=== PATIENT | female | born 1950 | race Caucasian/White ===

== ENCOUNTER 2020-12-14 08:37 | Outpatient (RCR) | payer MEDICARE, SELFPAY ==
[2016-11-03 17:49] VITALS: BMI 29.2
[2020-12-14] MEDS: COVID-19 VACC, MRNA(PFIZER)/PF 30 MCG/0.3 ML SYRINGE IM (14:33)
[2021-01-04] MEDS: COVID-19 VACC, MRNA(PFIZER)/PF 30 MCG/0.3 ML SYRINGE IM (14:17)
== END 2021-03-13 23:59 ==
LOC: IMMUN 08:37
PROVIDERS: PCP Family Medicine; Referring Provider Family Medicine; Visit Provider Family Medicine
DX: Z23 Encounter for immunization (principal)
CPT/HCPCS: 0001A; 0002A; 91300

== ENCOUNTER 2021-08-06 22:12 | Emergency (ER) | payer MEDICARE, SELFPAY ==
[2021-08-06 22:13] VITALS: BP 182/94; PULSE 89; RESP 16; TEMP 36; O2SAT 95; BMI 26.6
--- NOTE | 2021-08-06 23:13 | RAD_ITS ---
STUDY: X-RAY - ABDOMEN/PELVIS REASON FOR EXAM: Female, 71 years old. constipation TECHNIQUE: KUB. COMPARISON: None. FINDINGS: Lung bases are clear. There is a non-obstructive bowel gas pattern. There is no organomegaly. No abnormal calcifications. Mild degenerative changes of the lumbar spine. Soft tissues and bony structures are otherwise unremarkable. RAD/Abdomen Single View IMPRESSION: No acute findings. Electronically Signed: Priti Le MD at 23:38 EDT Tel , Service support ,
--- NOTE | 2021-08-06 23:17 | EDS_ITS ---
HPI History of Present Illness Chief Complaint: Constipation Informant: patient Narrative Narrative: 71-year-old female presented to the emergency department with a chief complaint of constipation. Patient is postop day 3 from a hysterectomy performed at [facility]. She states that since the hysterectomy she has been taking stool softeners. She states that she feels pressure in the rectal area but cannot seem to pass any formed stool. She states that she was having flatus yesterday but not today. No fevers. She states that she is leaking diarrhea. [facility] Medical History (Updated 08/07/21 @ 00:[address] Qasim Morin DO) GERD (gastroesophageal reflux disease) Home Medications PE-DM-ASA/[id number] [[place] Day-Night Tab Eff] 1 ea PO Q6H PRN PRN 11/03/16 [History Last Taken Unknown] amoxicillin 500 mg PO TID #10 tab 11/03/16 [Rx Last Taken Unknown] cholecalciferol (vitamin D3) [Vitamin D3] 2,000 unit PO DAILY 11/03/16 [History Last Taken Unknown] omeprazole 10 mg PO DAILY 11/03/16 [History Last Taken Unknown] sodium chloride [[place] Nasal [place]] 1 spray NASAL PRN PRN 11/03/16 [History Last Taken Unknown] magnesium citrate 300 ml PO X1 PRN #2 bottle 08/07/21 [Rx Last Taken Unknown] Allergy/AdvReac Type Severity Reaction Status Date / Time No Known Allergies Allergy Verified 08/06/21 22:14 Surgical History (Updated 08/06/21 @ 23:[address] Qasim Morin DO) Status post hysterectomy Social History (Updated 08/06/21 @ 23:[address] Qasim Morin DO) Smoking Status: Never smoker substance use type: does not use ROS ROS ED Constitutional Constitutional ED: Denies chills or weight loss Eyes Eyes: Denies change in vision or diplopia ENT ENT ED: Denies ear pain, rhinorrhea or sore throat Cardiovascular Cardiovascular: Denies chest pain, orthopnea, palpitations or racing heartbeat Respiratory/Chest Respiratory/Chest: Denies cough, dyspnea or orthopnea Gastrointestinal Gastrointestinal: Reports constipation; Denies abdominal pain, diarrhea, nausea or vomiting Genitourinary Genitourinary ED: Denies dysuria, hematuria or urinary frequency Musculoskeletal Musculoskeletal: Denies arthralgias or myalgias Integumentary Denies abscess or rash Neurologic Neurologic: Denies headache(s) or weakness Psychiatric Psychiatric: Denies anxiety, depression, suicidal ideation or suicidal thoughts Endocrine Endocrinology: Denies polydipsia, polyphagia or polyuria Allergic/Immunologic Allergic/Immunologic ED: Denies mouth swelling, tongue swelling or urticaria EXAM Physical Exam Const Vital Signs: 08/06/21 22:13 Temperature 96.8 F L Temperature Source Temporal Pulse Rate 89 Respiratory Rate 16 Blood Pressure 182/94 H Blood Pressure Mean 123 Pulse Ox 95 Oxygen Delivery Method Room Air Positive well nourished and well developed General Appearance ED: well developed HEENT Reports normocephalic, head/scalp atraumatic, TM's clear and moist mucous membranes Negative for trauma Tympanic Membrane ED: Yes TM's clear Eyes PERRL and EOMs intact bilaterally Neck no lymphadenopathy, supple and no JVD Resp normal respiratory effort and clear to auscultation bilaterally Cardio regular rate, regular rhythm and no murmurs GI normal to inspection, nondistended, normoactive bowel sounds and non-tender Palpation: soft Back/Spine no CVA tenderness and normal ROM Extremity normal to inspection General Extremety ED: Negative for edema General Extremity: Negative for edema Neuro oriented x3 and CN's II-XII intact bilaterally Sensorium / Orientation: alert Motor Exam: strength 5/5 throughout Psych mental status grossly normal Mood & Affect: Negative for depressed or tearful Skin no rashes or lesions noted and no wounds MDM MDM MDM Narrative Medical decision making narrative: My interpretation of the abdominal x-ray is large amount of stool in the rectum and sigmoid colon. Patient received an enema but had difficulty holding it. The stool in the rectal vault is soft. Patient will continue enemas at home as well as magnesium citrate. Radiography Diagnostic Testing: Clinical Impression(s) from Imaging Studies KUB X-Ray 08/06/21 23:13 IMPRESSION: No acute findings. Electronically Signed: Priti Le MD at 23:38 EDT Tel , Service support , Discharge Plan Triage Chief Complaint: Constipation ED Provider: Qasim Morin Dx/Rx/DC Orders Clinical Impression: Constipation Instructions: ED Constipation (Adult) Prescriptions: New magnesium citrate Solution 300 ml PO X1 PRN (Reason: constipation) Qty: 2 RF: 0 No Action omeprazole 10 MG capsule 10 mg PO DAILY RF: 0 sodium chloride [[place] Nasal] 1 SPRAY aerosol,spray 1 spray NASAL PRN PRN (Reason: Sinus Congestion) RF: 0 cholecalciferol (vitamin D3) [Vitamin D3] 2,000 UNIT capsule 2,000 unit PO DAILY RF: 0 PE-DM-ASA/erjtyq-LZ-CM-ASA [[place] Plus Day-Night] 1 EACH tablet,effervescent sequential 1 ea PO Q6H PRN PRN (Reason: Cold Symptons) RF: 0 amoxicillin 500 MG tablet 500 mg PO TID Qty: 10 RF: 0 Primary Care Provider: Archana Barraza Referrals: Archana Barraza MD [Primary Care Provider] - As Needed Activity Restrictions/Additional Instructions: As discussed you may wish to continue enemas at home to help soften the stool to make it easier to pass Disposition Disposition: Home, Self Care
[2021-08-07] MEDS: Magnesium Citrate 300 ML PO (01:20)
== END 2021-08-07 01:21 | disposition home or self-care (01) ==
PROVIDERS: Emergency Provider Emergency Medicine; PCP Family Medicine
DX: K59.00 Constipation, unspecified (principal)
CPT/HCPCS: 74018; 99285

== ENCOUNTER 2022-03-31 16:49 | Emergency (ER) | payer MEDICARE, SELFPAY ==
[2022-03-31 16:50] VITALS: BP 176/81; PULSE 95; RESP 16; TEMP 36.3; O2SAT 100; BMI 26.6
--- NOTE | 2022-03-31 17:01 | EDS_ITS ---
HPI History of Present Illness Chief Complaint: Upper Extremity Injury Informant: patient Occured/Mechanism Mechanism/Context: Yes fall Onset/Context/Timing Onset: Today Context: Sudden Onset Current Severity: Mild Maximum Severity: Mild Narrative Narrative: Patient presents with right wrist pain after a fall. She was coming down some steps, missed the last step, twirled and fell backward onto the ground. She complains of pain to her right wrist and mild pain to her left elbow. She is r ight-hand dominant. She denies striking her head. She is not on anticoagulants. She took ibuprofen for pain prior to arrival. [facility] Medical History GERD (gastroesophageal reflux disease) Home Medications omeprazole 10 mg capsule,delayed release 10 mg PO DAILY 11/03/16 [History Last Taken Unknown] doxepin 25 mg capsule 1 cap PO QHS 03/31/22 [History Last Taken Unknown] Allergy/AdvReac Type Severity Reaction Status Date / Time No Known Allergies Allergy Verified 03/31/22 16:51 Surgical History Status post hysterectomy Social History Smoking Status: Never smoker substance use type: does not use ROS ROS ED Constitutional Constitutional ED: Denies chills or fever(s) Eyes Eyes: Denies change in vision or discharge from eye(s) ENT ENT ED: Denies discharge from eye(s), rhinorrhea or sore throat Cardiovascular Cardiovascular: Denies chest pain or palpitations Respiratory/Chest Respiratory/Chest: Denies cough or dyspnea Gastrointestinal Gastrointestinal: Denies abdominal pain, diarrhea, nausea or vomiting Genitourinary Genitourinary ED: Denies dysuria Musculoskeletal Musculoskeletal: Reports extremity pain; Denies back pain Integumentary Denies rash Psychiatric Psychiatric: Denies anxiety or depression Allergic/Immunologic Allergic/Immunologic ED: Denies lip swelling or urticaria EXAM Physical Exam Const Vital Signs: 03/31/22 16:50 Temperature 97.4 F L Temperature Source Temporal Pulse Rate 95 Respiratory Rate 16 Blood Pressure 176/81 H Blood Pressure Mean 112 Pulse Ox 100 Oxygen Delivery Method Room Air Positive well nourished and well developed General Appearance ED: well developed HEENT Reports normocephalic and head/scalp atraumatic Eyes PERRL and EOMs intact bilaterally Neck supple Chest Wall inspection of chest normal and palpation of chest normal Resp normal respiratory effort and clear to auscultation bilaterally Cardio regular rate and regular rhythm GI normal to inspection, nondistended, normoactive bowel sounds Palpation: soft Extremity Extremity Narrative: Small ecchymosis noted along the medial left elbow. No bony tenderness with full range of motion. Tenderness palpation over the radial surface of the right wrist. Mild edema. Strong hand grasp. No tenderness at the elbow or shoulder Neuro oriented x3 and no sensory deficits noted Sensorium / Orientation: alert Motor Exam: strength 5/5 throughout Psych mental status grossly normal Skin Skin Narrative: As above MDM MDM MDM Narrative Medical decision making narrative: Right wrist x-rays obtained to include navicular view. Radiography Diagnostic Testing: Radiology Impression Wrist X-Ray 03/31/22 17:27 IMPRESSION: Acute nondisplaced nonangulated oblique fracture the distal metaphysis of the radius with ulnar styloid fracture. Electronically Signed: Ramez Cheung MD at 17:44 EDT , Treatment and Re-Evaluation Narrative: Right wrist x-ray per my interpretation reveals a distal radius fracture. Radiology interpretation is reviewed. They do confirm an acute nondisplaced fracture through the distal radius and an ulnar styloid fracture. Test results are reviewed with the patient. She is placed in an AP Ortho-Glass splint by myself. Following splint application she can wiggle fingers and has good cap refill. She will follow-up with orthopedics. She declines anything for pain Discharge Plan Triage Chief Complaint: Upper Extremity Injury ED Provider: Eda Xavier Dx/Rx/DC Orders Clinical Impression: Fracture of wrist Instructions: ED Fracture, Wrist, General Prescriptions: No Action omeprazole 10 MG capsule 10 mg PO DAILY doxepin 25 mg capsule 1 cap PO QHS Label Comments: TAKE 1 CAPSULE BY MOUTH NIGHTLY Primary Care Provider: Archana Barraza Referrals: Archana Barraza MD [Primary Care Provider] - Rene Colorado MD [STAFF PHYSICIAN] - 5-7 Days Disposition Disposition: Home, Self Care
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
[2022-03-31 18:41] VITALS: RESP 16
== END 2022-03-31 18:41 | disposition home or self-care (01) ==
PROVIDERS: Emergency Provider Emergency Medicine; PCP Family Medicine; Visit Provider Emergency Medicine
DX: S62.101A Fracture of unspecified carpal bone, right wrist, initial encounter for closed fracture (principal); K21.9 Gastro-esophageal reflux disease without esophagitis; Z79.899 Other long term (current) drug therapy; W10.9XXA Fall (on) (from) unspecified stairs and steps, initial encounter
CPT/HCPCS: 73110; 99283

== ENCOUNTER 2023-04-14 10:21 | Emergency (ER) | payer MEDICARE, SELFPAY ==
[2023-04-14 10:23] VITALS: BP 119/107; PULSE 92; RESP 16; TEMP 36.6; O2SAT 93; BMI 29.0
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
[2023-04-14] MEDS: Acetaminophen 325 MG Tablet 650 MG PO (11:39)
== END 2023-04-14 11:47 | disposition home or self-care (01) ==
PROVIDERS: Emergency Provider Emergency Medicine; PCP Family Medicine; Visit Provider Emergency Medicine
DX: S50.12XA Contusion of left forearm, initial encounter (principal); S39.012A Strain of muscle, fascia and tendon of lower back, initial encounter; V49.88XA Car occupant (driver) (passenger) injured in other specified transport accidents, initial encounter
CPT/HCPCS: 71046; 72100; 99284

== ENCOUNTER 2023-06-02 09:30 | Outpatient (RCR) | payer MEDICARE, SELFPAY ==
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
--- NOTE | 2023-06-02 10:13 | HP.PTDCSUM ---
Discharge Summary D/C summary: It has been my pleasure to treat NATALEE AVILEZ referred by Dr. Archana Barraza MD, with the diagnosis of Acute midline LBP for a total of 7 visit(s). Discharge Date: 06/02/23 Please see the following information for a summary of their discharge status. Subjective Subjective: Much better than 3 weeks ago. I am moving better. Pain is 2/10 any significantly better and mostly present with exertion. Sleeping is OK. Dizzyness is still present in am but just slight. Life and activities are normal but energy to clean is still tough if it hurts. Pain LBP: Pain Intensity (Out of 10): 0 Overall Improvement % Improvement: 100 Objective Objective/Function: AROM LB min deficts ext adn flexion and SB without pain today. walking slowly but I. - B hallpike ned today. Goals Goal 1:: LBP gone at rest adn 1/10 at worst and 90% BETTER Goal Progress: Progressing Goal 2:: Pt I in management of LBP Goal Progress: Goal Met Goal 3:: dizzyness abolished with lying down Goal Progress: Goal Met Goal 4:: oswestry score 4 or better Goal Progress: Progressing Goal 5:: scoot on table without hesitation or pain Goal Progress: Progressing Plan Plan: d/c to [facility] D/C Information Discharge Comments: Pt wishes to continue via [facility]. d/c sentence: If there are questions or concerns regarding this patient's physical therapy, please feel free to call me at [phone]. Thank you for the referral of this patient. Sincerely, Alexander Mayfield, DPT, OCS, CSCS Balance/Gait/Functional tests Balance/Special Test Scores Oswestry Low Back Score: 13 Improvement % Improvement: 100
== END 2023-06-02 14:01 | disposition home or self-care (01) ==
LOC: PT 09:30
PROVIDERS: PCP Family Medicine; Referring Provider Family Medicine; Visit Provider Family Medicine
DX: M54.50 Low back pain, unspecified (principal)
CPT/HCPCS: 97110; 97140; 97162; 97164